=== PATIENT | female | born 1965 | race Caucasian/White ===

== ENCOUNTER → 2017-02-22 | Day surgery (SDC) | payer BC ==
[~2017-02-22] MED LIST: ALPRAZolam 0.25 MG TAB ONE; BACITRACIN OINT 1 EACH PACKET TOPICAL ONE; LIDOCAINE 1% INJ 10MG/ML (20 ML MDV) ONE; LIDOCAINE 1%-EPI 1:100,000 20 ML VIAL ONE; SODIUM BICARB 4% 5 ML VIAL (0.48 MEQ/ML) ONE
--- NOTE | 2017-02-22 10:45 | MM ---
EXAMINATION TYPE: MG diagnostic mammo LT wo CAD, US breast aspiration single LT , US biopsy breast VAD LT DATE OF EXAM: 02/22/2017 9:46 AM CLINICAL HISTORY: R92.8 abnormal mammogram. History of left-sided breast cancer 2014 with new abnormal mammogram and ultrasound TECHNIQUE: Ultrasound guided core fine-needle aspiration and core biopsy of left breast with clip placement and follow-up two-view mammogram. COMPARISON: Prior left breast mammogram and ultrasound February 18, 2017. FINDINGS: The procedure of ultrasound guided fine-needle aspiration and core biopsy was explained to the patient. Benefits, alternatives, and risks were discussed. An informed consent was then obtained. The patient was placed in supine positioning for imaging and for the procedure. Preprocedure imaging redemonstrates a large oval anechoic area with central hyperechoic structure at 5:00 position in the left breast. The overlying skin was prepped and draped in usual sterile fashion. Lidocaine buffered with bicarbonate was used as anesthetic into the skin. Lidocaine with epinephrine is used as anesthetic into the deeper tissue up to area of concern in the left breast. A darrin was made with surgical scalpel. Under ultrasound guidance, an 18-gauge spinal needle was first used to aspirate just over 10 cc of yellow-colored fluid. At this point residual solid component is targeted. 12-gauge vacuum assisted biopsy gun device was used to obtain 5 core samples. Last 3 samples were all just remnant fluid in biopsy hub. Following this, a biopsy clip was left in lesion. The patient tolerated the procedure well without any immediate complication. The patient was kept in the radiology department for short stay after the procedure and then discharged home in stable condition. Postprocedure mammogram shows successful deployment of clip at area of mammogram concern. IMPRESSION: Successful, uncomplicated ultrasound guided fine-needle aspiration and core biopsy of area of concern in the left breast, full pathology results to follow. Low to intermediate index of suspicion. Favor infection or infectious process at site of treatment. Pathology Results: Benign BREAST, LEFT SITE A, ULTRASOUND GUIDED CORE BIOPSY: STROMAL FIBROSIS, FIBROPLASIA, VASCULAR PROLIFERATION, ACUTE AND CHRONIC INFLAMMATION, FOREIGN BODY REACTION, FAT NECROSIS AND FIBRIN CONSISTENT WITH PREVIOUS BIOPSY SITE. FOCAL BREAST CYST FORMATION. BREAST, LEFT SITE A, FINE NEEDLE ASPIRATE: BLOOD WITH FEATURES OF DEGENERATION, MACROPHAGES, AND RARE POSSIBLE DUCT EPITHELIAL CELLS CONSISTENT WITH CHANGES SECONDARY TO PREVIOUS, SEE [phone]. Recommendation Follow up ultrasound of the left breast in 6 months. SANDHYA
== END ==
LOC: RADUSWWP 07:56
PROVIDERS: ATTEND Surgery
DX: R92.8 Other abnormal and inconclusive findings on diagnostic imaging of breast (principal); N60.32 Fibrosclerosis of left breast; N64.1 Fat necrosis of breast; N64.89 Other specified disorders of breast; N60.02 Solitary cyst of left breast
CPT/HCPCS: 88305; 88173; 76942; 19000; 19083; G0206; A4648; J2001

== ENCOUNTER 2017-04-18 08:25 | Emergency (ER) | payer BC, OTHER ==
[2017-04-18 08:36] VITALS: BP 140/74; PULSE 94; RESP 16; TEMP 98.8
[2017-04-18] MEDS ORDERED: ONDANSETRON ODT 4 MG TAB PO STA (08:46)
[2017-04-18] MEDS ORDERED: ACETAMINOPHEN TAB 325 MG TAB PO STA (08:46)
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
== END 2017-04-18 10:05 | disposition home or self-care (01) ==
LOC: EC 08:25
DX: S13.4XXA Sprain of ligaments of cervical spine, initial encounter (principal); S09.90XA Unspecified injury of head, initial encounter; Z79.899 Other long term (current) drug therapy; Z85.3 Personal history of malignant neoplasm of breast; V87.8XXA Person injured in other specified noncollision transport accidents involving motor vehicle (traffic), initial encounter; Y92.410 Unspecified street and highway as the place of occurrence of the external cause
CPT/HCPCS: 70450; 72125; 99284

== ENCOUNTER → 2018-03-09 | Outpatient (CLI) | payer BC ==
--- NOTE | 2018-03-09 19:31 | CT ---
EXAMINATION TYPE: CT abdomen pelvis w con DATE OF EXAM: 03/09/2018 COMPARISON: NONE HISTORY: Left lower quadrant pain x 2-[address] DLP: 1662.5 mGycm Automated exposure control for dose reduction was used. TECHNIQUE: Helical acquisition of images was performed from the lung bases through the pelvis. CONTRAST: Performed with Oral Contrast and with IV Contrast, patient injected with 100 mL of Isovue M300. FINDINGS: Lung bases are clear. There is no pleural effusion. There is a hiatal hernia. Liver spleen pancreas appear normal. There are clips from cholecystectomy. Bile ducts are not dilated . There is an oval-shaped 1.5 cm left adrenal mass. This suggests a benign etiology. The kidneys show satisfactory contrast opacification. There is no hydronephrosis. There is no retrope ritoneal adenopathy. There is no ascites. I see no intestinal wall thickening. There are no dilated loops. Appendix is not seen. There is no si gn of appendicitis. Bladder distends smoothly. There is no evidence of a pelvic mass. There is no sign of free air. I see no bony destructive process. IMPRESSION: HIATAL HERNIA. LOW-DENSITY SMALL LEFT ADRENAL MASS IS PROBABLY BENIGN. NO SIGN OF ACUTE ABDOMEN AND P SELENA. I DO NOT SEE A CAUSE FOR LEFT LOWER QUADRANT PAIN.
== END | disposition home or self-care (01) ==
LOC: RADCTMAIN 17:07
PROVIDERS: ATTEND Family Medicine
DX: K44.9 Diaphragmatic hernia without obstruction or gangrene (principal); E27.8 Other specified disorders of adrenal gland
CPT/HCPCS: 74177; Q9967

== ENCOUNTER 2019-03-13 09:33 | Day surgery (SDC) | payer BC ==
[2019-03-08 15:45] VITALS: BMI 36.6
[~2019-03-13 09:33] MED LIST changes: -ALPRAZolam 0.25 MG TAB ONE; -BACITRACIN OINT 1 EACH PACKET TOPICAL ONE; +LACTATED RINGERS 1,000 ML IV SCH; +LIDOCAINE 1% 20 ML VIAL (10MG/ML) FOR IV START INTRADERMA PRN; -LIDOCAINE 1% INJ 10MG/ML (20 ML MDV) ONE; -LIDOCAINE 1%-EPI 1:100,000 20 ML VIAL ONE; -SODIUM BICARB 4% 5 ML VIAL (0.48 MEQ/ML) ONE
[2019-03-13 09:56] VITALS: RESP 16; TEMP 98.1
[2019-03-13] MEDS ORDERED: LACTATED RINGERS 1,000 ML IV ONE (09:58)
[2019-03-13] MEDS ORDERED: PROPOFOL 10 MG/ML 20 ML VIAL IV ONE (10:06)
[2019-03-13] MEDS ORDERED: fentaNYL (PF) 50 MCG/ML 2 ML AMP ONE (10:06)
[2019-03-13] MEDS ORDERED: MIDAZOLAM 2 MG/2 ML VIAL ONE (10:06)
[2019-03-13 10:53] VITALS: BP 126/71; PULSE 97
--- NOTE | 2019-03-13 11:45 | P.PCN ---
Date of Procedure: 03/13/19 Procedure(s) Performed: Procedure: Esophagogastroduodenoscopy and biopsy and esophageal dilation using the Microvasive gsxbuiw-ksm-qfrgp balloon dilator size 15-18 mm. Preoperative diagnosis: Chronic reflux symptoms and recent onset of dysphagia. Postoperative diagnosis: 1. Hiatal hernia with low-grade esophagitis and esophageal stricture dilated up to 18 mm. 2. Mild gastritis. 4. Biopsies obtained from the duodenum, antrum and esophagus. Preparation and sedation: Were provided by anesthesia. Brief clinical history: The patient is a 53-year-old female who I have evaluated in the office earlier this month regarding chronic reflux symptoms and recent onset of dysphagia over the prior month or so. No weight loss or other alarm symptoms. This evaluation is to assess for esophagitis, complicated reflux disease or other pathology. Procedure: With the patient on her left lateral decubitus position and after informed consent and adequate sedation, I passed a Olympus-GIF H190 video upper endoscope through the cricopharyngeus down the esophagus. GE junction was around 35 cm from the incisors and there was a 2-3 cm sliding hiatal hernia. There was a short benign-appearing stricture that did not impede advancement of the endoscope. The esophagus showed linear erosions consistent with LA grade B esophagitis. The endoscope was then passed into the stomach which was insufflated with air and inspected in detail including the retroflex view in the cardia. There was mottling and erythema in the antrum but no ulcers or erosions. Pyloric channel, duodenal bulb, post bulbar area and descending duodenum appeared within normal limits. I obtained biopsies from the duodenum and antrum then I dilated the esophagus and after that I obtained biopsies from the esophagus. The esophageal dilation was accomplished using the Microvasive ivucpfh-hca-botrz balloon dilator size 15-18 mm which was passed through the operating channel of the endoscope and was centered at the level of the stricture and was insufflated in a stepwise fashion up to 18 mm. The patient had no immediate complications. Plan: The patient was reassured. I asked her to increase her Zantac to twice a day. She will be on clear liquids today and then advance her diet tomorrow as tolerated. Further dilations as needed based on her course.
== END 2019-03-13 11:22 | disposition home or self-care (01) ==
LOC: ORWHC2ENDO 09:33
DX: K22.2 Esophageal obstruction (principal); K44.9 Diaphragmatic hernia without obstruction or gangrene; K29.50 Unspecified chronic gastritis without bleeding; K20.0 Eosinophilic esophagitis; K21.9 Gastro-esophageal reflux disease without esophagitis; F17.200 Nicotine dependence, unspecified, uncomplicated; Z79.891 Long term (current) use of opiate analgesic; Z79.899 Other long term (current) drug therapy; Z85.3 Personal history of malignant neoplasm of breast
CPT/HCPCS: 88305; 43239; 43249; J2250; J3010; J2704; C1726

== ENCOUNTER → 2025-02-05 | Outpatient (CLI) | payer OTHER ==
--- NOTE | 2025-02-05 11:48 | XR ---
EXAMINATION TYPE: XR Hip Bilateral Complete DATE OF EXAM: 02/05/2025 CLINICAL INDICATION: Female, 59 years old with history of M54.50 LOW BACK PAIN, UNSPECIFIED, Pain TECHNIQUE: AP and frogleg views of the bilateral hips are obtained. COMPARISON: CT abdomen and pelvis March 09, 2020. FINDINGS: There is no acute fracture/dislocation evident in either hip. Mild acetabular spurring in both hips. Hip joint spaces are otherwise fairly well maintained. Femoral head changes are maintained bilaterally. The overlying soft tissue appears unremarkable bilaterally. IMPRESSION: As above. [facility], , 02/05/2025 11:46 AM
== END | disposition home or self-care (01) ==
LOC: RADXRMAIN 10:54
PROVIDERS: ATTEND Family Medicine
DX: M25.751 Osteophyte, right hip (principal); M25.752 Osteophyte, left hip; M54.50 Low back pain, unspecified
CPT/HCPCS: 73521

== ENCOUNTER → 2025-02-06 | Outpatient (CLI) | payer OTHER ==
--- NOTE | 2025-02-06 09:15 | MM ---
Reason for Exam: Clinical finding. Last mammogram was performed 7 year(s) and 11 month(s) ago. Indicated Problems: Lump or thickening of the right side (size 10) for 3 Day(s). Patient History: Menarche at age 14. First Full-Term at age 22. Hysterectomy at age 36. Breast cancer, left, age 49. Estrogen for 1 year, 6 months, from age 47 until age 49. 10/28/2015, Reduction on the Right side. 02/22/2017, Benign Cyst Aspiration on the left side. 02/22/2017, Benign Core Biopsy on the left side. 05/09/2015, Benign Core Biopsy on the left side. 03/21/2015, Benign Core Biopsy on the left side. 02/12/2015, Malignant Core Biopsy on the left side. 02/2015, Radiation Therapy. Prior Study Comparison: 02/04/2015 Bilateral Screening Mammogram, [facility]. 02/12/2015 Left Diagnostic Mammogram, [facility]. 12/05/2015 Bilateral Diagnostic Mammogram, [facility]. 06/16/2016 Left Diagnostic Mammogram, [facility]. 02/18/2017 Bilateral Diagnostic Mammogram, [facility]. 02/22/2017 Left Diagnostic Mammogram, [facility]. Tissue Density: The breasts are heterogeneously dense, which may obscure small masses. Findings: Analyzed By CAD. There is postoperative change involving the left breast consistent with the patient's reported history. There are benign-appearing calcifications bilaterally. There is coarse calcifications are seen in the bilateral breasts. There is a new 1 cm spiculated nodule in the posterior central inner margin left breast. Approximately 8 to 9 cm from the nipple. In the area of palpable abnormality of the right breast there are coarse large calcifications. Overall Assessment: Incomplete: need additional imaging evaluation, BI-RAD 0 Management: Diagnostic Breast Ultrasound of the left breast. . Results were given to the patient verbally at the time of exam. Patient should continue monthly self-breast exams. A clinical breast exam by your physician is recommended on an annual basis. This exam should not preclude additional follow-up of suspicious palpable abnormalities. Note on Tamie scores and lifetime risk: 1. A Tamie score greater than 3% is considered moderate risk. If this is the case, consider specialist referral to assess eligibility for a risk reducing agent. 2. If overall lifetime risk for the development of breast cancer is 20% or higher, the patient may qualify for future screening with alternating mammogram and breast MRI. [facility], , 02/06/2025 9:12 AM. Electronically signed and approved by: Sheldon Calixto M.D. Radiologis
--- NOTE | 2025-02-06 09:56 | USB ---
Reason for Exam: Clinical finding. Patient History: Menarche at age 14. First Full-Term at age 22. Hysterectomy at age 36. Breast cancer, left, age 49. Estrogen for 1 year, 6 months, from age 47 until age 49. 10/28/2015, Reduction on the Right side. 02/22/2017, Benign Cyst Aspiration on the left side. 02/22/2017, Benign Core Biopsy on the left side. 05/09/2015, Benign Core Biopsy on the left side. 03/21/2015, Benign Core Biopsy on the left side. 02/12/2015, Malignant Core Biopsy on the left side. 02/2015, Radiation Therapy. Technique: Method: Targeted. Prior Study Comparison: 06/16/2016 Left Diagnostic Mammogram, [facility]. 02/18/2017 Bilateral Diagnostic Mammogram, [facility]. 02/22/2017 Left Diagnostic Mammogram, [facility]. Findings: The medial section of the breast of the left breast, the axilla of the left breast and the retroareolar of the left breast were scanned. A targeted US of 5-12 o'clock of the left breast and axilla, retro-areolar region were reviewed. Large area of distortion with shadowing compatible with prior biopsy. Calcifications are seen near the nipple. There is an irregular appearing mass corresponding as the mammographic finding at the 9:00 position measuring approximately 10 x 8 mm. Overall Assessment: Suspicious, BI-RAD 4 Management: Ultrasound Core Biopsy of the left breast. A clinical breast exam by your physician is recommended on an annual basis and results should be correlated with mammographic findings. This exam should not preclude additional follow-up of suspicious palpable abnormalities. Results were given to the patient verbally at the time of exam. [facility], , 02/06/2025 9:53 AM. Electronically signed and approved by: Sheldon Calixto M.D. Radiologis
== END | disposition home or self-care (01) ==
LOC: RADMAMWWP 08:17
PROVIDERS: ATTEND Family Medicine
DX: R92.333 Mammographic heterogeneous density, bilateral breasts (principal); N60.02 Solitary cyst of left breast; Z85.3 Personal history of malignant neoplasm of breast
CPT/HCPCS: 77062; 77066

== ENCOUNTER → 2025-02-13 | Day surgery (SDC) | payer OTHER ==
--- NOTE | 2025-02-13 12:36 | MM ---
Reason for Exam: Post Procedure Mammogram. Last screening mammogram was performed less than 1 month ago. Patient History: Menarche at age 14. First Full-Term at age 22. Hysterectomy at age 36. Breast cancer, left, age 49. Estrogen for 1 year, 6 months, from age 47 until age 49. 10/28/2015, Reduction on the Right side. 02/22/2017, Benign Cyst Aspiration on the left side. 02/22/2017, Benign Core Biopsy on the left side. 05/09/2015, Benign Core Biopsy on the left side. 03/21/2015, Benign Core Biopsy on the left side. 02/12/2015, Malignant Core Biopsy on the left side. 02/2015, Radiation Therapy. Prior Study Comparison: 02/18/2017 Bilateral Diagnostic Mammogram, [facility]. 02/18/2017 Bilateral Diagnostic Ultrasound, [facility]. 02/22/2017 Left Diagnostic Mammogram, [facility]. 02/06/2025 Left US breast limited LT, [facility]. 02/06/2025 Bilateral MG 3D diag mammo w/cad PAIGE, [facility]. Tissue Density: Left: The breasts are heterogeneously dense, which may obscure small masses. Findings: Microclip marker is appropriately placed at the 9:00 position left breast. Overall Assessment: Suspicious, BI-RAD 4 Management: Surgical Consultation of both breasts. . Results were given to the patient verbally at the time of exam. Patient should continue monthly self-breast exams. A clinical breast exam by your physician is recommended on an annual basis. This exam should not preclude additional follow-up of suspicious palpable abnormalities. Note on Tamie scores and lifetime risk: 1. A Tamie score greater than 3% is considered moderate risk. If this is the case, consider specialist referral to assess eligibility for a risk reducing agent. 2. If overall lifetime risk for the development of breast cancer is 20% or higher, the patient may qualify for future screening with alternating mammogram and breast MRI. [facility], , 02/13/2025 12:33 PM. Electronically signed and approved by: Zoran Martinez M.D. Radiologis
--- NOTE | 2025-02-19 12:25 | USB ---
Prior Study Comparison: 02/18/2017 Bilateral Diagnostic Mammogram, [facility]. 02/22/2017 Left Diagnostic Mammogram, [facility]. 02/06/2025 Bilateral MG 3D diag mammo w/cad PAIGE, [facility]. Pathology Description: Location: 9 o'clock. Marker Left Behind. Needle Type: Celero Cores: 4 Gauge: 13 The procedure of ultrasound guided core biopsy was explained to the patient. Benefits, alternatives, and risks were discussed. An informed consent was then obtained. The patient was placed in supine positioning for imaging and for the procedure. The overlying skin was prepped and draped in usual sterile fashion. Lidocaine buffered with bicarbonate was used as anesthetic into the skin and subcutaneous tissue up to area of concern in the left 9:00 breast. A darrin was made with surgical scalpel. Under ultrasound guidance, a 12-gauge vacuum assisted biopsy gun device was used to obtain 3 core samples. Following this, a biopsy clip was left in lesion. The patient tolerated the procedure well without any immediate complication. The patient was kept in the radiology department for short stay after the procedure and then discharged home in stable condition. Postprocedure mammogram: The patient was transferred to mammography for physician ordered post procedure mammogram for clip placement verification. Post procedure mammogram demonstrates the clip in appropriate placement. Impression: Successful, uncomplicated ultrasound guided core biopsy of area of concern in the left 9:00 breast, full pathology results to follow. [facility], , 02/13/2025 12:32 PM. Pathology Results: Result: Malignant, Invasive ductal carcinoma. Pathology and radiology were reviewed. Findings are concordant. LEFT BREAST, 9:00 5 CMFN, NEEDLE CORE BIOPSY: Invasive poorly differentiated ductal carcinoma (Grade 3). See Surgical Pathology Cancer Case Summary and Comment. Overall Assessment: Malignant Management: Surgical Consultation of the left breast. Electronically signed and approved by: Zoran Martinez M.D. Radiologis
== END ==
LOC: RADUSWWP 09:45
PROVIDERS: ATTEND Family Medicine
DX: C50.812 Malignant neoplasm of overlapping sites of left female breast (principal)
CPT/HCPCS: 88305; 88342; 88341; 77065; 19083; A4648

== ENCOUNTER → 2025-03-07 | Outpatient (CLI) | payer OTHER ==
--- NOTE | 2025-03-07 10:17 | PE ---
EXAMINATION TYPE: PET CT fusion skull to thigh DATE OF EXAM: 03/07/2025 COMPARISON: CT abdomen pelvis 03/09/2018 Prior PET/CT: No prior PET CTs at this location. CLINICAL INDICATION: Female, 59 years old with history of Breast ca, TECHNIQUE: Following the intravenous administration of 10.94 mCi of F-18 FDG, whole body images are performed PET CT fusion skull to thigh. Images are reviewed on the computer in the coronal, axial, a nd sagittal planes. Reconstructed rotating images are created on independent workstation and reviewe d on the computer. A localization and attenuation correction CT is performed in conjunction with th e PET scan. DLP: 824.66 mGycm SCAN: Subsequent Blood glucose: 129 mg/dL Average Mediastinum SUV: 2.27 Average Liver SUV: 3.43 FINDINGS: NECK: No suspicious uptake. THORAX: There is a small focus radiotracer within the medial left breast near the chest wall image 11 9, SUV 6.9. There is some uptake within the posterior breast which may be on a biopsy site. SUV 4.6, image 127. T his could be related to neoplasm or postsurgical inflammatory change. There is diffuse mild uptake along the skin thickening of the left breast. SUV is below background th is could be inflammatory changes. No intrathoracic abnormal uptake evident. No suspicious uptake within the axillary region. Symmetrica l intercostal uptake in the paraspinal regions may be related to brown fat. ABDOMEN: No suspicious uptake. PELVIS: There is a small area of uptake within the left vaginal vault region of uncertain significanc e. This does have elevated SUV of 8.51, image 247. Pelvic exam recommended. This potentially could be contamination. OSSEOUS STRUCTURES: No suspicious uptake LOCALIZATION CT: There is a hiatal hernia present. Skin thickening along the left breast is noted. IMPRESSION: 1. Two foci of uptake within the posterior left breast with elevated SUV. 2. Suspicious uptake to suggest metastasis is not identified. 3. Focal uptake may be within the left vaginal vault region may be contamination. Pelvic exam however is recommended. [facility], , 03/07/2025 10:15 AM
== END | disposition home or self-care (01) ==
LOC: RADPETMAIN 06:18
PROVIDERS: ATTEND Student in an Organized Health Care Education/Training Program
DX: C50.812 Malignant neoplasm of overlapping sites of left female breast (principal)
CPT/HCPCS: 78815; A9552